=== PATIENT | female | born 1995 | race Two or more races ===

== ENCOUNTER 2019-08-24 15:10 | Emergency (ER) | payer MEDICAID, OTHER ==
[~2019-08-24] VITALS: Ht 157.5 cm; Wt 64.4 kg
[2019-08-24] MEDS ORDERED: cefTRIAXone W LIDOCAINE 1 GM IM IM ONE (17:30)
[2019-08-24] MEDS ORDERED: cefTRIAXone SOD 1,000 MG VL ONE (17:41)
[2019-08-24 17:47] VITALS: BP 118/70
== END 2019-08-24 18:21 | disposition home or self-care (01) ==
LOC: ER 15:35
DX: K04.7 Periapical abscess without sinus (principal)
CPT/HCPCS: 96372; 99283; J0696

== ENCOUNTER → 2019-11-18 | Emergency (ER) | payer MEDICAID ==
[~2019-11-18] VITALS: Ht 157.5 cm; Wt 64.9 kg
[~2019-11-18] MED LIST: SODIUM CHLORIDE 0.9% 1,000 ML IV ONE
[2019-11-19 00:18] LABS: Basophils # (auto) 0 10 ^3/uL (0-0.2); Eosinophils # (auto) 0.1 10 ^3/uL (0-0.8); Eosinophils % (auto) 0.7 % (0.0-7.0); Hematocrit 38.9 % (36.0-46.0); Hemoglobin 12.7 g/dL (12.2-16.2); Lymphocytes # (auto) 1.7 10 ^3/uL (0.4-5.4); Lymphocytes % (auto) 20.3 % (10.0-50.0); Neutrophils # (auto) 6.2 10 ^3/uL (1.6-8.6); Red Blood Cells 4.79 10^6/uL (4.0-5.20)
[2019-11-19 00:20] LABS: Basophils % (auto) 0.4 % (0.0-2.0); Mean Corpuscular Hemoglobin 26.6 pg (28.0-32.0); Mean Corpuscular Hgb Conc. 32.7 g/dL (32.0-36.0); Mean Corpuscular Volume 81.2 fL (80.0-100.0); Monocytes # (auto) 0.6 10 ^3/uL (0-1.3); Monocytes % (auto) 6.7 % (0.0-12.0); Neutrophils % (auto) 71.9 % (37.0-80.0); Platelet Count (auto) 323 10^3/uL (140-450); Red Cell Distribution Width 13.9 % (11.8-14.3); White Blood Cell 8.6 10^3/uL (4.4-10.8)
[2019-11-19 00:33] LABS: INR 1.07 (0.9-1.15); Partial Thromboplastin Time 23.6 sec (23.64-32.05)
[2019-11-19 00:35] LABS: Calcium 7.9 mg/dL (8.5-10.1); Potassium 3.5 mmol/L (3.5-5.1)
[2019-11-19 00:38] LABS: Albumin 3.3 g/dL (3.4-5.0); BUN/Creatinine Ratio 16.4
[2019-11-19 00:41] LABS: Bilirubin, Total 0.3 mg/dL (0.2-1.0); Total Protein 6.9 g/dL (6.4-8.2)
[2019-11-19 03:08] VITALS: BP 97/55
== END | disposition home or self-care (01) ==
LOC: ER 21:42
DX: K91.840 Postprocedural hemorrhage of a digestive system organ or structure following a digestive system procedure (principal)
CPT/HCPCS: 36415; 80053; 85025; 85610; 85730; 99283; J7030